=== PATIENT | male | born 1990 | race Asian ===

== ENCOUNTER 2017-02-24 13:44 | Emergency (ER) | payer OTHER ==
[~2017-02-24] VITALS: Ht 165.1 cm; Wt 65.8 kg
[2017-02-24 14:40] VITALS: BP 127/76; TEMP 97.2
== END 2017-02-24 14:48 | disposition home or self-care (01) ==
LOC: ED 13:44
DX: K52.9 Noninfective gastroenteritis and colitis, unspecified (principal); R11.10 Vomiting, unspecified; R19.7 Diarrhea, unspecified
CPT/HCPCS: 96372; 99283; J2550

== ENCOUNTER 2017-05-22 04:08 | Emergency (ER) | payer OTHER ==
[~2017-05-22] VITALS: Ht 160 cm; Wt 65.8 kg
[2017-05-22 05:14] LABS: PLATELET COUNT 285 K/uL (142-355)
[2017-05-22 05:32] LABS: POTASSIUM 3.2 mmol/L (3.6-5.2); SODIUM 137 mmol/L (136-145)
[2017-05-22 06:12] VITALS: BP 109/67; TEMP 97.6
== END 2017-05-22 06:15 | disposition home or self-care (01) ==
LOC: ED 04:08
PROVIDERS: Specialist
DX: K85.90 Acute pancreatitis without necrosis or infection, unspecified (principal)
CPT/HCPCS: 36415; 80053; 82150; 83690; 85027; 99283

== ENCOUNTER 2020-09-16 09:40 | Emergency (ER) | payer OTHER ==
[~2020-09-16] VITALS: Ht 162.6 cm; Wt 91.6 kg
[2020-09-16 09:56] VITALS: TEMP 98.9
[2020-09-16 10:50] VITALS: BP 138/74
== END 2020-09-16 10:50 | disposition home or self-care (01) ==
LOC: ED 09:40
DX: U07.1 COVID-19 (principal)
CPT/HCPCS: 87502; 87635; 87651; 99283; U0003